=== PATIENT | female | born 1990 | race Caucasian/White ===

== ENCOUNTER 2017-10-03 18:17 | Inpatient (IN) ==
[2017-10-03 18:54] VITALS: BMI 27.8
[2017-10-03] MEDS: LR 1,000 ML IV PRN ×2 (19:21→20:40)
[2017-10-03] MEDS ORDERED: CARBOPROST 250 MCG/ML INJECTION IM PRN (19:25)
[2017-10-03] MEDS ORDERED: ACETAMINOPHEN 500 MG TABLET PO PRN ×2 (19:25→23:33)
[2017-10-03] MEDS ORDERED: CALCIUM CARBONATE Chewable 500mg TABLET PO PRN ×2 (19:25→23:33)
[2017-10-03] MEDS ORDERED: MAG-AL + SIM ORAL LIQUID 30ml PO PRN ×2 (19:25→23:33)
[2017-10-03] MEDS ORDERED: SALINE FLUSH 10ml SYRINGE IV PRN (19:25)
[2017-10-03] MEDS ORDERED: METHYLERGONOVINE 0.2 MG/ML INJECTION IM PRN (19:25)
[2017-10-03] MEDS ORDERED: D5LR 1,000 ML IV SCH (19:30)
--- NOTE | 2017-10-03 20:12 | Anesthesia Preoperative Report ---
Anesthesia Epidural/Spinal Rec - Date and Time Date: 10/03/17 Preoperative Diagnosis: Active labor Procedure: Labor Epidural Plan: Epidural - Vital Signs /Para: P:1 - Medictaions & Allergies Inpatient Medications: Current Medications Acetaminophen (Tylenol) 500 - 1,000 mg PO Q4H PRN PRN Reason: Pain Al Hydroxide/Mg Hydroxide (Maalox Plus) 30 ml PO Q3H PRN PRN Reason: Indigestion Calcium Carbonate (Tums) 500 - 1,000 mg PO Q2H PRN PRN Reason: Indigestion Carboprost Tromethamine (Hemabate) 250 mcg IM O PRN PRN Reason: .Downtime Dextrose/Lactated Ringer's (Dextrose 5%-Lactated Ringers) 1,000 mls @ 125 mls/ hr IV .Q8H SULLY Last Admin: 10/03/17 19:21 Dose: 125 mls/hr Lactated Ringer's (Lactated Ringers) 1,000 mls @ 999 mls/hr IV .Q1H1M PRN Last Admin: 10/03/17 19:21 Dose: 999 mls/hr Methylergonovine Maleate (Methergine) 0.2 mg IM O PRN Misoprostol (Cytotec) 800 mcg PA ONCE PRN Sodium Chloride (Iv Flush) 10 - 80 ml IV PRN PRN PRN Reason: Flushing Allergies/Adverse Reactions: Allergies Allergy/AdvReac Type Severity Reaction Status Date / Time No Known Allergies Allergy Verified 09/28/17 09:24 - Home Medications Home Medications: Home Medications Medication Instructions Recorded Confirmed Type Vitamins DAILY 09/28/17 History - Medical History Other History: Reports: Now - Surgical History HEENT Surgeries: Reports: Eye Surgery (lasix) Musculoskeletal Surgery/Tx: Reports: Other (knee surgeries - ACL & maniscus) Reproductive Surgery/Treatment: DENIES: Section Anesthesia Reactions: None Hx Family Anesthesia Reaction: No History of Motion Sickness: No - Social History Smoking Status: Never smoker Second Hand Exposure: No Substance Use Type: does not use Alcohol Intake Frequency: does not drink - Pertinent Findings Lab Data: CBC and BMP 10/03/17 19:20 - Physical Exam Respiratory Exam: lungs clear Cardiovascular Exam: regular rate and rhythm - Airway Assessment Mallampati Score: II TMD: 2 Fingerbreadths Neck Extension: good Overall Assessment: may be difficult intubation - ASA ASA Score: 2 - Discussion Discussion: Discussed risks/options/alternatives of anesthesia and questions answered. Patient consents. Nursing pain assessment noted. Anesthesia Discussion: spouse Attestation Statement: Prior to the delivery of any anesthetic medication, I examined the patient, developed the plan, obtained the patient's consent and discussed the risk and benefits of the procedure with the patient/guardian.
[2017-10-03] MEDS ORDERED: NALOXONE 0.4 MG/ML INJECTION IVP PRN (20:13)
[2017-10-03] MEDS ORDERED: DiphenhydrAMINE 50 MG/ML INJECTION IVP PRN (20:13)
[2017-10-03] MEDS ORDERED: ONDANSETRON 4 MG/2 ML INJECTION IVP PRN (20:13)
[2017-10-03] MEDS ORDERED: ROPIVACAINE 1% 10MG/ML INJ 200 MG, SUFentanil 50 MCG in NS 100 ML EPI PRN (20:13)
[2017-10-03] MEDS ORDERED: HYDROCORTISONE 2.5% CREAM 30gm RECTALLY PRN (23:33)
[2017-10-03] MEDS ORDERED: DiphenhydrAMINE 25 MG CAPSULE PO PRN (23:33)
[2017-10-03] MEDS ORDERED: HYDROCODONE/APAP 5mg/325mg TABLET PO PRN (23:33)
[2017-10-03] MEDS ORDERED: OXYTOCIN DRIP 30 UNIT/500 ML ML IV SCH (23:45)
[2017-10-04] MEDS: IBUPROFEN 800 MG TABLET PO SCH ×3 (01:06→18:20)
--- NOTE | 2017-10-04 08:15 | OB/GYN Progress Note ---
OB-PP Progress Note - General PPD1 Maternal Group B Strep: Negative Maternal blood type: AB+ Maternal Rubella Status: Immune - Subjective Date: 10/04/17 Lochia: Minimal Pain: controlled Voiding: voiding - Objective Vital Signs: Last Vital Signs Temp 97.8 F 10/04/17 07:35 Pulse 74 10/04/17 07:35 Resp 14 10/04/17 07:35 BP 127/73 10/04/17 07:35 Pulse Ox 100 10/04/17 07:35 General: alert and oriented Abdomen: fundus firm, non-tender Extremities: non-tender Laboratory: Laboratory Results - last 24 hr 10/03/17 19:20 WBC 10.1 RBC 3.94 L Hgb 12.6 Hct 37.5 MCV 95.2 MCH 32.0 MCHC 33.6 RDW Std Deviation 41.9 Plt Count 123 L MPV 11.9 - Assessment Assessment: - Plan Plan: routine care
--- NOTE | 2017-10-04 09:06 | Anesthesia Postoperative Note ---
- Date and Time Date: 10/04/17 Time: 09:06 - Status Patient Participated in Evaluation: Patient Participated in Person Vital Signs: Temperature 97.8 F 10/04/17 07:35 Pulse Rate 74 10/04/17 07:35 Respiratory Rate 14 10/04/17 07:35 Blood Pressure 127/73 10/04/17 07:35 Pulse Oximetry 100 10/04/17 07:35 Respiratory Function: Airway Patent Mental Status: Alert and Oriented Pain Intensity: 0 Hydration: Taking PO Fluids Complications During Recover: None Apparent - Follow-Up Instructions Instructions: Per Surgeon
[2017-10-04] MEDS: DOCUSATE CALCIUM 240 MG CAPSULE PO SCH (10:48)
[2017-10-04] MEDS: PRENATAL VITAMIN TABLET PO SCH (11:30)
[2017-10-05] MEDS: IBUPROFEN 800 MG TABLET PO SCH ×2 (02:03→07:14)
[2017-10-05] MEDS: DOCUSATE CALCIUM 240 MG CAPSULE PO SCH (07:14)
[2017-10-05] MEDS: PRENATAL VITAMIN TABLET PO SCH (07:14)
[2017-10-05 07:35] VITALS: BP 126/77; PULSE 65; RESP 14; TEMP 97.8; O2SAT 100
--- NOTE | 2017-10-05 07:36 | OB/GYN Progress Note ---
OB-PP Progress Note - General PPD2 Maternal Group B Strep: Negative Maternal blood type: AB+ Maternal Rubella Status: Immune - Subjective Date: 10/05/17 Lochia: Minimal Pain: controlled Voiding: voiding Nausea or Vomiting Present: No - Objective Vital Signs: Last Vital Signs Temp 97.8 F 10/05/17 04:35 Pulse 65 10/05/17 04:35 Resp 14 10/05/17 04:35 BP 126/77 10/05/17 04:35 Pulse Ox 100 10/05/17 04:35 General: alert and oriented Cardiovascular: regular rate,rhythm Respiratory: non-labored Abdomen: fundus firm Incision: normal Extremities: non-tender Edema: none - Assessment Assessment: SP, - Plan Plan: routine care, discharge home Expected date of discharge: 10/05/17
--- NOTE | 2017-10-15 16:50 | Labor and Delivery Note ---
DATE OF DELIVERY 10/04/2017 SUMMARY Ms. Alves progressed well in first stage of labor. She began to push with excellent effort. She delivered the head in the OA presentation. The baby was bulb suctioned on the perineum. With a further push baby was delivered in total. Baby was then further bulb suctioned and placed on mother' s abdomen. After a little over two minutes the cord was doubly clamped and cut. Subsequently the placenta delivered spontaneously intact. It had a normal appearance and a normal-appearing three-vessel cord. The patient had a first-degree midline laceration that was repaired with 2-0 Vicryl. Total blood loss was approximately 200 mL. MTDD
== END 2017-10-05 10:35 | disposition home or self-care (01) | DRG 775 ==
LOC: OBOBS 18:17 → MC 18:18
PROVIDERS: ADMIT Obstetrics & Gynecology; ATTEND Obstetrics & Gynecology